=== PATIENT | male | born 1970 | race Caucasian/White ===

== ENCOUNTER 2024-09-20 06:07 | Day surgery (SDC) | payer OTHER, SELFPAY ==
[2024-09-14 08:44] VITALS: BMI 32.6
[2024-09-14 09:26] LABS: Blood Urea Nitrogen 20 mg/dl (9-20); Calcium 9.2 mg/dl (8.4-10.2); Carbon Dioxide 27 mmol/L (22-30); Chloride 106 mmol/L (98-107); Estimated Creatinine Clearance 88 ml/min; Glucose 90 mg/dl (70-99); Sodium 142 mmol/L (135-145); eGFR > 60.00
[2024-09-20] VITALS (9 sets, daily range): BP systolic 122–147; BP diastolic 81–102; BMI 32.6
== END 2024-09-20 09:50 | disposition home or self-care (01) ==
LOC: SDS 06:07
PROVIDERS: ATTENDING PHYSICIAN Otolaryngology
DX: H65.22 Chronic serous otitis media, left ear (principal); J35.2 Hypertrophy of adenoids; J39.2 Other diseases of pharynx
CPT/HCPCS: 42831; 69436; 88305; 80048; 88341; 88342; 88365; 93005; L8699

== ENCOUNTER 2025-06-16 10:19 | Emergency (ER) | payer OTHER, SELFPAY ==
[2025-06-16 10:31] VITALS: BP 144/104
[2025-06-16 10:41] VITALS: BP 135/89
[2025-06-16 11:00] VITALS: BP 130/84
[2025-06-16 11:09] LABS: Hematocrit 43.9 % (39.0-52.0); Hemoglobin 15.3 g/dL (13.0-18.0); Mean Corp Hgb Conc. 34.9 g/dL (33.0-37.0); Mean Corpuscular Volume 86.8 fL (80.0-94.0); Nucleated Red Blood Cells % 0 % (-); Platelet Count 206 10^3/uL (130-400); Red Cell Dist. Width 12.4 % (11.5-14.5)
[2025-06-16 11:23] LABS: ALT (SGPT) 21 U/L (0-50); AST (SGOT) 22 U/L (17-59); Albumin 4.3 g/dl (3.5-5.0); Alkaline Phosphatase 89 U/L (38-126); Blood Urea Nitrogen 19 mg/dl (9-20); Calcium 8.7 mg/dl (8.4-10.2); Carbon Dioxide 23 mmol/L (22-30); Chloride 109 mmol/L (98-107); Glucose 103 mg/dl (70-99); Lipase 444 U/L (23-300); Potassium 4.0 mmol/L (3.5-5.1); Sodium 139 mmol/L (135-145); Total Protein 7.2 g/dl (6.3-8.2); eGFR > 60.00
[2025-06-16 11:57] VITALS: BMI 35.6
[2025-06-16 12:00] VITALS: BP 125/85
[2025-06-16 12:05] LABS: Urine Character Clear (Clear)
--- NOTE | 2025-06-16 12:09 | ED.GENMED ---
History of Present Illness
General
Chief Complaint: Abdominal Pain
Time Seen by Provider: 06/16/25 11:09
History of Present Illness
History of Present Illness:
54-year-old male who presents to the emergency department for evaluation of severe left upper quadrant pain for the past 24 hours. He has a history of recurrent diverticulitis with retroperitoneal perforation in August 2022, underwent subsequent
sigmoid colectomy in October 2022. He reports after having this surgery he has had intermittent 'spasms' of the left upper quadrant but this pain feels distinctly different. No associated fevers or chills. Denies any nausea, vomiting, or
diarrhea.
Past History
Past History
ED Past Medical History: None
ED Past Surgical History: Orthopedic and Tonsilectomy
Social History
Tobacco: Smoker (2 packs/day)
Alcohol: Occasional
Drug: None
Living: with family
Review of Systems
Review of Systems
Allergies reviewed?: Yes
All Other Systems: ROS reviewed and negative except as documented in HPI and ROS
Phy Exam
Physical Exam
Physical Exam:
GEN: Well appearing, NAD, WDWN
HEENT: Oral mucosa moist, no scleral icterus
Cardiac: Regular rate
Lung: No respiratory distress, no tachypnea
Abdomen: Soft, focal left upper quadrant tenderness, no rigidity or peritoneal signs
MSK: No gross deformity or injuries
Skin: Good color, no pallor or jaundice, no rashes
Neuro: AO x3, moves all extremities freely
Psych: Calm, cooperative
Course
Orders/Labs/Results
Orders:
Orders
06/16/25 10:59
Complete Blood Count/With Diff Urgent
Comprehensive Metabolic Panel Urgent
Lipase Urgent
06/16/25 11:55
Urinalysis Reflex To Culture Urgent
Date Specimen was Collected: 06/16/25
Time Specimen was Collected: 11:51
06/16/25 12:09
CT Abd/Pel (IV only)-DH only Urgent
Comment:
Reason For Exam: LUQ pain
Abnormal Lab Results
06/16/25
10:59
Absolute Neuts (auto) 7.0 H 10^3/uL
(1.4-6.5)
Absolute Monos (auto) 0.8 H 10^3/uL
(0.1-0.6)
Chloride 109 H mmol/L
(98-107)
Glucose 103 H mg/dl
(70-99)
Lipase 444 H U/L
(23-300)
06/16/25 10:59
06/16/25 10:59
Vital Signs
Initial and Last Documented VS:
Initial Vital Signs
Temp Pulse Resp BP Pulse Ox
98.6 F 94 18 144/104 99
06/16/25 10:31 06/16/25 10:31 06/16/25 10:31 06/16/25 10:31 06/16/25 10:31
Last Documented Vital Signs
Temp Pulse Resp BP Pulse Ox
98.6 F 83 22 135/89 96
06/16/25 10:31 06/16/25 10:45 06/16/25 10:45 06/16/25 10:41 06/16/25 12:09
MDM/Problems Addressed
MDM/Problems Addressed:
52-year-old male presents with upper abdominal pain, labs and imaging unremarkable. He is a tobacco and cannabis user thus this may be acute gastritis/peptic ulcer disease, will treat empirically with PPIs, recommend primary care follow-up
*Pulse Oximetry
SaO2: 96
Oxygen Mode of Delivery: Room air
Patient hypoxic: no
*Critical Care Note
Total Time (30-74mins, 75-104mins- exclusive of procedures): Not Applicable
ED Attending Note
-
Portions of this chart may have been created with voice recognition software.� Occasional wrong word or��sound alike� substitutions may have occurred due to the inherent limitations of voice recognition software.
Discharge Plan
Departure
Patient Disposition: Home (Routine Discharge)
Date of Disposition: 06/16/25
Time of Disposition: 14:17
Patient with high blood pressure during this ER visit?: No
Discharge Problem:
Gastritis
Instructions: Gastritis (DC)
Prescriptions:
New
pantoprazole 40 mg tablet,delayed release (DR/EC)
40 mg PO DAILY Qty: 14 0RF
No Action
ibuprofen 200 mg Tablet
400 mg PO Q6H PRN (Reason: pain)
Referrals:
NONE,* [Family Provider, Internal Medicine]
Interventions
Interventions:
*Risk Screen - Suicide Last Done: 06/16/25 10:31
*General Assessment Last Done: 06/16/25 10:31
*Neglect/Abuse Screening Last Done: 06/16/25 10:31
*ED- Fall Risk Assessment Last Done: 06/16/25 10:31
*ED COVID-19 Vaccine History Last Done: 06/16/25 10:31
FO-Jvslds-Iajevshgna Assessment Last Done: 06/16/25 11:38
Discharge Date and Time
Print Language: MALIAN
[2025-06-16 13:00] VITALS: BP 131/86
== END 2025-06-16 14:33 | disposition home or self-care (01) ==
LOC: EMR 10:19
PROVIDERS: Physician Assistant; EMERGENCY PHYSICIAN Emergency Medicine
DX: R10.12 Left upper quadrant pain (principal); K29.00 Acute gastritis without bleeding; K57.92 Diverticulitis of intestine, part unspecified, without perforation or abscess without bleeding; F17.210 Nicotine dependence, cigarettes, uncomplicated; Z98.0 Intestinal bypass and anastomosis status; Z88.0 Allergy status to penicillin; Z88.8 Allergy status to other drugs, medicaments and biological substances
CPT/HCPCS: 99284; 74177; 80053; 81003; 83690; 85025; Q9967

== ENCOUNTER 2025-08-11 10:35 | Emergency (ER) | payer OTHER, SELFPAY ==
[2025-08-11 10:40] VITALS: BP 143/90
--- NOTE | 2025-08-11 11:42 | ED.GENMED ---
History of Present Illness
General
Chief Complaint: Rectal Bleeding
Source: patient
Time Seen by Provider: 08/11/25 11:20
History of Present Illness
History of Present Illness:
54-year-old male presents to the emergency room for evaluation of bloody stool. Patient began having crampy abdominal pain earlier today. About 930 he passed bowel movement which was mostly blood. He describes that his bright red. He had a
second bowel movement about half an hour later which was similar. No fever or chills. He continues to have crampy abdominal pain. Patient has a history of diverticulitis for which he required a partial bowel resection. He does not take any
prescription medications. He does take ibuprofen occasionally. He is taking about twice this week.
Past History
Past History
ED Past Medical History: None
ED Past Surgical History: Orthopedic and Tonsilectomy
Social History
Tobacco: Smoker (2 packs/day)
Alcohol: Occasional
Drug: None
Living: with family
Phy Exam
Physical Exam
Physical Exam:
General: Awake, Alert, Oriented X3. No acute distress.
Vitals: unremarkable
Head: Atraumatic
Eyes: Pupils equal, EOMI
Throat: Airway intact, no exudates
Neck: Trachea midline
Lungs: Clear and equal b/l
Heart: Regular rate, no murmurs
Abd: Soft, Nontender, No pulsatile mass
Rectal:
Neuro: Cranial nerves intact, muscle strength equal bilaterally, cerebellar exam normal
Skin: Warm, dry, no rash
Extremities: pulses equal b/l, no edema
Course
Orders/Labs/Results
Orders:
Orders
08/11/25 11:41
Cardiac Monitoring- Treatment ONCE
IV Insert/Care/Rem.- Treatment PRN
0.9% Sodium Chloride 1000 ml [Nss] 1,000 ml IV BOLUS
08/11/25 11:57
Type+Screen Urgent
Basic Metabolic Panel Urgent
Complete Blood Count/With Diff Urgent
08/11/25 11:59
CT Abd/pelvis W Iv Cont Urgent
Comment:
Reason For Exam: abd pain, rectal bleeding
Abnormal Lab Results
08/11/25
11:57
Absolute Monos (auto) 0.7 H 10^3/uL
(0.1-0.6)
08/11/25 11:57
08/11/25 11:57
Vital Signs
Initial and Last Documented VS:
Initial Vital Signs
Temp Pulse Resp BP Pulse Ox
98.2 F 86 16 143/90 98
08/11/25 10:40 08/11/25 10:40 08/11/25 10:40 08/11/25 10:40 08/11/25 10:40
Last Documented Vital Signs
Temp Pulse Resp BP Pulse Ox
98.2 F 79 17 114/92 97
08/11/25 10:40 08/11/25 15:21 08/11/25 15:21 08/11/25 13:00 08/11/25 14:45
MDM/Problems Addressed
Differential Diagnosis Includes:
internal hemorrhoid bleeding, diverticular bleeding, avm, anal fissure
MDM/Problems Addressed:
Patient presents with bright red bleeding per rectum. Hemodynamically stable. Hemoglobin is normal. The overall description of his presentation seems more consistent with bleeding from a fissure or internal hemorrhoid rather than diverticular
bleeding. He passed normal stool with some bright red. He has had further bright red bleeding but not any crampy abdominal pain or other symptoms to suggest colonic source. He is stable for discharge and follow-up with colorectal surgery as an
outpatient. Communicated with Dr. Youssef who will help the patient get a short-term follow-up
*Pulse Oximetry
SaO2: 98
Oxygen Mode of Delivery: Room air
Patient hypoxic: no
*Critical Care Note
Total Time (30-74mins, 75-104mins- exclusive of procedures): Not Applicable
ED Attending Note
-
Portions of this chart may have been created with voice recognition software.� Occasional wrong word or��sound alike� substitutions may have occurred due to the inherent limitations of voice recognition software.
Discharge Plan
Departure
Patient Disposition: Home (Routine Discharge)
Date of Disposition: 08/11/25
Time of Disposition: 15:23
Patient with high blood pressure during this ER visit?: No
Condition: Good
Discharge Problem:
Rectal bleeding
Instructions: Bloody stools in adults - ED (DC)
Prescriptions:
No Action
ibuprofen 200 mg Tablet
400 mg PO Q6HPRN PRN (Reason: mild pain)
Referrals:
Fabio Youssef MD [Active, ColoRectal]
NONE,* [Family Provider, Internal Medicine]
Activity Restrictions/Additional Instructions:
I communicated with Dr. Youssef and he would like you to follow-up in the office to soon as possible. Call either this afternoon or first thing in the morning to arrange an appointment. Return to the emergency room if the bleeding seems to be
increasing in severity you feel dizzy or feel like your symptoms are changing in any way.
Interventions
Interventions:
*Risk Screen - Suicide Last Done: 08/11/25 10:40
*General Assessment Last Done: 08/11/25 12:04
*Neglect/Abuse Screening Last Done: 08/11/25 10:40
*ED- Fall Risk Assessment Last Done: 08/11/25 12:04
*ED Influenza Vaccine History Last Done: 08/11/25 12:04
*Nursing Disposition Last Done: 08/11/25 15:38
QX-Gqdsfp-Geucqyzpsk Assessment Last Done: 08/11/25 12:04
ED- Cardiac Assessment Last Done: 08/11/25 12:04
ED- Pulmonary Assessment Last Done: 08/11/25 12:04
Discharge Date and Time
Discharge Date/Time: 08/11/25 15:38
Print Language: [id number]
[2025-08-11] MEDS: NSS 1000 IV (12:00)
[2025-08-11 12:03] VITALS: BP 133/89; BMI 35.6
[2025-08-11 12:17] LABS: Hematocrit 45.4 % (39.0-52.0); Hemoglobin 15.4 g/dL (13.0-18.0); Mean Corp Hgb Conc. 33.9 g/dL (33.0-37.0); Mean Corpuscular Volume 88.5 fL (80.0-94.0); Nucleated Red Blood Cells % 0 % (-); Platelet Count 202 10^3/uL (130-400); Red Cell Dist. Width 12.6 % (11.5-14.5)
[2025-08-11 12:36] LABS: Blood Urea Nitrogen 15 mg/dl (9-20); Calcium 9.0 mg/dl (8.4-10.2); Carbon Dioxide 27 mmol/L (22-30); Chloride 107 mmol/L (98-107); Estimated Creatinine Clearance 93 ml/min; Glucose 96 mg/dl (70-99); Potassium 4.5 mmol/L (3.5-5.1); Sodium 140 mmol/L (135-145); eGFR > 60.00
[2025-08-11 13:00] VITALS: BP 114/92
== END 2025-08-11 15:38 | disposition home or self-care (01) ==
LOC: EMR 10:35
PROVIDERS: EMERGENCY PHYSICIAN Emergency Medicine
DX: K62.5 Hemorrhage of anus and rectum (principal); F17.210 Nicotine dependence, cigarettes, uncomplicated; Z90.49 Acquired absence of other specified parts of digestive tract
CPT/HCPCS: 99284; 96360; 74177; 80048; 85025; 86850; 86900; 86901; Q9967